=== PATIENT | male | born 1980 | race African-American/Black ===

== ENCOUNTER 2019-02-12 09:39 | Emergency (ER) | payer OTHER ==
[~2019-02-12] VITALS: Ht 175.3 cm; Wt 77.3 kg
[2019-02-12 09:42] VITALS: BP 129/73
[2019-02-12] MEDS ORDERED: DOXY100C37 PO (10:16)
[2019-02-12] MEDS ORDERED: IBUP-1022 PO (10:17)
== END 2019-02-12 10:22 | disposition home or self-care (01) ==
LOC: M ED 09:39
DX: L02.414 Cutaneous abscess of left upper limb (principal); L03.114 Cellulitis of left upper limb

== ENCOUNTER 2019-02-14 09:52 | Emergency (ER) | payer OTHER ==
[~2019-02-14] VITALS: Ht 175.3 cm; Wt 75.0 kg
[~2019-02-14 09:52] MED LIST: DOXY100C37 PO; IBUP-1022 PO
[2019-02-14] MEDS ORDERED: NS 1,000 ML IV ONE (11:00)
[2019-02-14] MEDS ORDERED: ONDANSETRON 4MG/2ML VIAL (J2405) IV ONE (11:00)
[2019-02-14 11:38] LABS: BASO % 1.1 % (0.0-1.0); EOS # 0.1 10^3/uL (0.0-0.5); EOS % 1.4 % (0.0-3.0); HEMATOCRIT 40.2 % (42.0-52.0); HEMOGLOBIN 12.7 g/dl (13.5-17.5); LYMPH # 1.3 10^3/uL (1.5-5.0); LYMPH % 34.1 % (24.0-44.0); MEAN CORPUSCULAR HEMOGLOBIN 27.6 pg (27.0-33.0); MEAN CORPUSCULAR HGB CONC 31.6 g/dl (32.0-36.5); MEAN CORPUSCULAR VOLUME 87.4 fl (80.0-96.0); MONO # 0.3 10^3/uL (0.0-0.8); MONO % 8.7 % (0.0-5.0); NEUTROPHILS % 54.7 % (36.0-66.0); PLATELET COUNT, AUTOMATED 237 10^3/uL (150-450); WHITE BLOOD COUNT 3.7 10^3/uL (4.0-10.0)
[2019-02-14 12:04] LABS: ALBUMIN 4.2 GM/DL (3.2-5.2); ALT/SGPT 38 U/L (12-78); BILIRUBIN,TOTAL 0.4 MG/DL (0.2-1.0); BLOOD UREA NITROGEN 14 MG/DL (7-18); CALCIUM LEVEL 9.4 MG/DL (8.5-10.1); CARBON DIOXIDE LEVEL 29 MEQ/L (21-32); CHLORIDE LEVEL 106 MEQ/L (98-107); GLOMERULAR FILTRATION RATE > 60.0 (>60); GLUCOSE, FASTING 80 MG/DL (70-100); POTASSIUM SERUM 4.4 MEQ/L (3.5-5.1); SODIUM LEVEL 139 MEQ/L (136-145); TOTAL PROTEIN 7.7 GM/DL (6.4-8.2)
[2019-02-14] MEDS ORDERED: KEFL500C17 PO (12:59)
[2019-02-14 13:48] VITALS: BP 123/74
--- NOTE | 2019-02-14 16:55 | ECGEPIP ---
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
== END 2019-02-14 13:50 | disposition home or self-care (01) ==
LOC: M ED 10:59
DX: Z48.00 Encounter for change or removal of nonsurgical wound dressing (principal); L03.114 Cellulitis of left upper limb; R11.2 Nausea with vomiting, unspecified; R42 Dizziness and giddiness; Z79.2 Long term (current) use of antibiotics
CPT/HCPCS: 36415; 80053; 85025; 93005; 99284; J2405

== ENCOUNTER 2019-05-02 08:44 | Emergency (ER) | payer OTHER ==
[~2019-05-02] VITALS: Ht 175.3 cm; Wt 77.4 kg
[2019-05-02 08:44] VITALS: BP 118/70
[~2019-05-02 08:44] MED LIST changes: +KEFL500C17 PO
[2019-05-02] MEDS ORDERED: PHEN-815 PO (08:50)
[2019-05-02 09:46] LABS: INFLUENZA A AMPLIFICATION NEGATIVE (NEGATIVE); INFLUENZA B AMPLIFICATION NEGATIVE (NEGATIVE)
[2019-05-02] MEDS ORDERED: TESS100C PO (10:11)
[2019-05-02] MEDS ORDERED: ALL10TAB29 PO (10:11)
== END 2019-05-02 10:24 | disposition home or self-care (01) ==
LOC: M ED 08:44
DX: J06.9 Acute upper respiratory infection, unspecified (principal); R09.82 Postnasal drip

== ENCOUNTER 2019-08-25 09:01 | Emergency (ER) | payer OTHER ==
[~2019-08-25] VITALS: Ht 175.3 cm; Wt 78.7 kg
[~2019-08-25 09:01] MED LIST changes: +ALL10TAB29 PO; +PHEN-815 PO; +TESS100C PO
[2019-08-25 09:02] VITALS: BP 122/78
[2019-08-25] MEDS ORDERED: MUCI600T31 PO (09:07)
[2019-08-25] MEDS ORDERED: FLON27.5 NARES ×2 (09:23→10:09)
[2019-08-25] MEDS ORDERED: LEVOTAB10 PO ×2 (09:23→10:09)
== END 2019-08-25 09:40 | disposition home or self-care (01) ==
LOC: M ED 09:01
DX: J30.2 Other seasonal allergic rhinitis (principal)

== ENCOUNTER 2019-10-14 13:08 | Emergency (ER) | payer OTHER ==
[~2019-10-14 13:08] MED LIST changes: -ALL10TAB29 PO; +CETI-24 PO; +FLON27.5 NARES; +LEVOTAB10 PO; +MUCI600T31 PO
[2019-10-14] MEDS ORDERED: MAGIC MOUTHWASH SUSPENSION BTL ONE (13:09)
== END 2019-10-14 19:33 | disposition home or self-care (01) ==
LOC: M ED 13:08
DX: J02.9 Acute pharyngitis, unspecified (principal); R05 Cough; Z11.59 Encounter for screening for other viral diseases
CPT/HCPCS: 71046; 99283; U0002

== ENCOUNTER → 2020-01-11 | Outpatient (CLI) | payer OTHER ==
--- NOTE | 2020-01-11 11:12 | REP ---
INDICATION: CHRONIC RHINITIS FILE ROOM. COMPARISON: NONE. TECHNIQUE: Helical scanning is acquired and 2 mm axial images re-formatted. Coronal MPR images are generated and reviewed. FINDINGS: Preliminary digital bleacher pulp radiographs are unremarkable. The frontal sinuses are clear. There is mild mucosal thickening in several ethmoid air cells bilaterally. There is a mucous retention cyst in the right maxillary sinus superiorly, another anteriorly, and there is minimal mucosal thickening inferiorly in the right maxillary sinus. The left maxillary sinus is clear. Ostiomeatal complexes are patent bilaterally. There are small Troy cells bilaterally. The bony nasal septum deviates somewhat to the left with a septal beak. Nasal turbinates soft tissues are unremarkable. Nasal ethmoid recesses are clear. There is a small mucous retention cyst in the floor of the sphenoid sinus on the left. Mastoid aeration is normal and symmetric. No intraorbital abnormality is seen. The visualized intracranial and the facial soft tissues are unremarkable. IMPRESSION: Mild mucosal changes in the ethmoid sinuses bilaterally and in the right maxillary sinus. Leftward deviation of the mid nasal septum with Jack focal septal beak. <Electronically signed by Rafael Hawkins > 01/11/20 0836
== END ==
LOC: M RAD 10:28
PROVIDERS: ATTEND Specialist
DX: J31.0 Chronic rhinitis (principal)

== ENCOUNTER 2020-06-18 17:00 | Emergency (ER) | payer OTHER ==
[~2020-06-18] VITALS: Ht 175.3 cm; Wt 86.1 kg
[2020-06-18 20:04] LABS: BASO % 0.8 % (0.0-1.0); EOS # 0.1 10^3/uL (0.0-0.5); EOS % 2.8 % (0.0-3.0); HEMATOCRIT 43.2 % (42.0-52.0); HEMOGLOBIN 14.1 g/dl (13.5-17.5); LYMPH # 1.5 10^3/uL (1.5-5.0); LYMPH % 32.6 % (24.0-44.0); MEAN CORPUSCULAR HEMOGLOBIN 28.9 pg (27.0-33.0); MEAN CORPUSCULAR HGB CONC 32.6 g/dl (32.0-36.5); MEAN CORPUSCULAR VOLUME 88.5 fl (80.0-96.0); MONO # 0.5 10^3/uL (0.0-0.8); NEUTROPHILS # 2.5 10^3/uL (1.5-8.5); NEUTROPHILS % 53.6 % (36.0-66.0); PLATELET COUNT, AUTOMATED 258 10^3/uL (150-450); RED BLOOD COUNT 4.88 10^6/uL (4.30-6.10); WHITE BLOOD COUNT 4.7 10^3/uL (4.0-10.0)
[2020-06-18 20:20] LABS: BLOOD UREA NITROGEN 14 MG/DL (7-18); CALCIUM LEVEL 9.2 MG/DL (8.5-10.1); CARBON DIOXIDE LEVEL 33 MEQ/L (21-32); CHLORIDE LEVEL 105 MEQ/L (98-107); CREATININE FOR GFR 1.05 MG/DL (0.70-1.30); GLOMERULAR FILTRATION RATE > 60.0 (>60); GLUCOSE, FASTING 86 MG/DL (70-100); POTASSIUM SERUM 3.9 MEQ/L (3.5-5.1); SODIUM LEVEL 140 MEQ/L (136-145)
[2020-06-18 20:22] LABS: ALBUMIN 4.1 GM/DL (3.2-5.2); ALT/SGPT 34 U/L (12-78); AMYLASE 117 U/L (25-115); BILIRUBIN,DIRECT < 0.1 MG/DL (0.0-0.2); BILIRUBIN,TOTAL 0.2 MG/DL (0.2-1.0); LIPASE 97 U/L (73-393); TOTAL PROTEIN 7.5 GM/DL (6.4-8.2)
[2020-06-18] MEDS ORDERED: ISOVUE-370 76% 100ML VIAL As Ordered ONE (20:25)
--- NOTE | 2020-06-18 21:06 | REPVR ---
PROCEDURE INFORMATION: Exam: CT Abdomen And Pelvis With Contrast Exam date and time: 06/18/2020 8:31 PM Age: 40 years old Clinical indication: Abdominal pain; Localized; Right lower quadrant (rlq); Additional info: R/O appy TECHNIQUE: Imaging protocol: Computed tomography of the abdomen and pelvis with contrast. Radiation optimization: All CT scans at this facility use at least one of these dose optimization techniques: automated exposure control; mA and/or kV adjustment per patient size (includes targeted exams where dose is matched to clinical indication); or iterative reconstruction. Contrast material: ISOVUE 370; Contrast volume: 100 ml; Contrast route: INTRAVENOUS (IV); COMPARISON: No relevant prior studies available. FINDINGS: Liver: There is a diffuse decrease in hepatic parenchymal density, consistent with steatosis. Gallbladder and bile ducts: Normal. No calcified stones. No ductal dilation. Pancreas: Normal. No ductal dilation. Spleen: Normal. No splenomegaly. Adrenal glands: Normal. No mass. Kidneys and ureters: Normal. No hydronephrosis. Stomach and bowel: There is mild gastric distention with retained secretions. Clinical correlation to exclude gastroparesis or gastric outlet obstruction suggested. There is mildly increased feces throughout the colon consistent with constipation. Appendix: The appendix is within normal limits. There is no appendiceal enlargement, periappendiceal inflammatory changes or abscess. Intraperitoneal space: Unremarkable. No free air. No significant fluid collection. Vasculature: Unremarkable. No abdominal aortic aneurysm. Lymph nodes: Unremarkable. No enlarged lymph nodes. Urinary bladder: Unremarkable as visualized. Reproductive: Unremarkable as visualized. Bones/joints: Unremarkable. No acute fracture. Soft tissues: Unremarkable. IMPRESSION: 1. There is a diffuse decrease in hepatic parenchymal density, consistent with steatosis. 2. There is mild gastric distention with retained secretions. Clinical correlation to exclude gastroparesis or gastric outlet obstruction suggested. 3. The appendix is within normal limits. There is no appendiceal enlargement, periappendiceal inflammatory changes or abscess. 4. There is mildly increased feces throughout the colon consistent with constipation. Electronically signed by: Nelson Palma On 06/18/2020 21:06:51 PM
[2020-06-18 21:27] VITALS: BP 136/74
== END 2020-06-18 21:29 | disposition home or self-care (01) ==
LOC: M ED 17:00
DX: K59.00 Constipation, unspecified (principal); K30 Functional dyspepsia
CPT/HCPCS: 36415; 74177; 80048; 80076; 81001; 82150; 83690; 85025; 99284; Q9967

== ENCOUNTER → 2022-07-29 | Outpatient (CLI) | payer OTHER ==
[~2022-07-29] MED LIST changes: +DOXY-443 PO; -DOXY100C37 PO
== END ==
LOC: M RAD 11:23
PROVIDERS: ATTEND Otolaryngology
DX: J32.9 Chronic sinusitis, unspecified (principal)

== ENCOUNTER 2023-03-13 08:24 | Day surgery (SDC) | payer OTHER ==
[~2023-03-13] VITALS: Ht 175.3 cm; Wt 83.5 kg
[2023-03-13] MEDS ORDERED: LR 1,000 ML IV SCH ×3 (08:45→11:20)
[2023-03-13] MEDS ORDERED: fentaNYL 100 MCG/2 ML INJECTION As Ordered ONE (09:45)
[2023-03-13] MEDS ORDERED: MIDAZOLAM INJ 2MG/2ML VIAL As Ordered ONE (09:45)
[2023-03-13] MEDS ORDERED: METOCLOPRAMIDE INJ 10MG/2ML VIAL As Ordered ONE (09:45)
[2023-03-13] MEDS ORDERED: propofoL 200 MG/20 ML VIAL As Ordered ONE (09:45)
[2023-03-13] MEDS ORDERED: dexmedeTOMIDine (4MCG/ML)200MCG/50ML BTL (PRECEDEX) As Ordered ONE ×2 (09:45→10:28)
[2023-03-13] MEDS ORDERED: ACETAMINOPHEN 1000MG 100ML IV BAG As Ordered ONE (09:45)
[2023-03-13] MEDS ORDERED: ONDANSETRON 4MG 2ML VIAL As Ordered ONE (09:45)
[2023-03-13] MEDS ORDERED: LIDOCAINE 2% 100MG/5ML SDV (FOR ANES.) As Ordered ONE (09:45)
[2023-03-13] MEDS ORDERED: HYDROmorphone HCL 2MG/ML 1ML VIAL As Ordered ONE (10:13)
[2023-03-13] MEDS ORDERED: oxyCODONE 5MG TAB PO PRN (11:00)
[2023-03-13] MEDS ORDERED: HYDROMORPHONE HCL 0.5 MG/ 0.5 ML SYRINGE IV PRN (11:00)
[2023-03-13] MEDS ORDERED: ONDANSETRON 4MG 2ML VIAL IV PRN ×2 (11:00→11:20)
[2023-03-13] MEDS ORDERED: fentaNYL 100 MCG/2 ML INJECTION IV PRN (11:00)
[2023-03-13] MEDS ORDERED: HYDROcodone/APAP LIQUID 7.5-325MG 15ML UDC (LORTAB ELIXIR) PO PRN (11:20)
[2023-03-13 12:05] VITALS: BP 130/85; TEMP 97.5; O2SAT 98
== END 2023-03-13 12:10 | disposition home or self-care (01) ==
LOC: M SDC 08:24
PROVIDERS: ATTEND Otolaryngology
DX: J35.3 Hypertrophy of tonsils with hypertrophy of adenoids (principal); G47.30 Sleep apnea, unspecified; Z87.891 Personal history of nicotine dependence
CPT/HCPCS: 42821; 88302; J0131; J0665; J1100; J1170; J2250; J2405; J2765; J3010